=== PATIENT | female | born 1955 | race Caucasian/White ===

== ENCOUNTER 2016-12-31 09:49 | Emergency (ER) | payer BC ==
[~2016-12-31] VITALS: Ht 165.1 cm; Wt 89.5 kg
[2016-12-31 09:53] VITALS: TEMP 98.8
[2016-12-31 10:47] LABS: HEMATOCRIT 37.3 % (37.0-47.0); MEAN CELL VOLUME 67 fl (80.0-100.0); MEAN CORPUSCULAR HEMOGLOBIN 19 pg (27.0-31.0); MEAN CORPUSCULAR HGB CONC 29 g/dl (33.0-37.0); PLATELET COUNT 368 K/mm3 (130-400); RED BLOOD COUNT 5.58 M/mm3 (4.10-5.30); REDCELL DISTRIBUTION WIDTH-CV 17.9 % (11.5-14.5); WHITE BLOOD COUNT 14.9 K/mm3 (4.8-10.8)
[2016-12-31 10:51] LABS: ADD PATHOLOGY DIFF REVIEW NO; HEMOGLOBIN 10.8 g/dl (12.5-16.0)
[2016-12-31 11:06] LABS: PROTHROMBIN TIME 11.6 SECONDS (9.7-12.8)
[2016-12-31 11:07] LABS: ALANINE AMINOTRANSFERASE 24 U/L (9-52); ALBUMIN 4.5 gm/dL (3.5-5.0); ALKALINE PHOSPHATASE 82 U/L (50-136); ANION GAP 11 mmol/L (7-16); BILIRUBIN,TOTAL 0.7 mg/dL (0.0-1.0); BLOOD UREA NITROGEN 14 mg/dL (7-17); CALCIUM 9.4 mg/dL (8.4-10.2); CARBON DIOXIDE 23 mmol/L (22-30); CHLORIDE 105 mmol/L (98-107); CREATININE, serum 0.86 mg/dL (0.52-1.25); GLUCOSE 114 mg/dL (74-106); POTASSIUM 3.7 mmol/L (3.4-5.0); SODIUM 138 mmol/L (137-145); TOTAL PROTEIN 7.8 gm/dL (6.4-8.2)
[2016-12-31 11:18] LABS: TROPONIN-I < 0.012 ng/mL (0.000-0.034)
[2016-12-31] MEDS ORDERED: NORVASC 5MG5 MG/TAB PO (11:45)
[2016-12-31] MEDS ORDERED: NORCO 325 MG-51 TAB PO (11:45)
[2016-12-31 12:03] VITALS: BP 156/91; PULSE 58
[2016-12-31 12:07] LABS: EOSINOPHIL 1 % (0-4); NEUTROPHILS 94 % (42.0-75.2); PLATELET ESTIMATE NORMAL (NORMAL); TOTAL CELLS COUNTED 100
[2016-12-31 12:08] LABS: HYPOCHROMIA 2+; MICROCYTOSIS 1+
== END 2016-12-31 12:05 | disposition home or self-care (01) ==
LOC: COL.ER 09:49
PROVIDERS: Emergency Medicine
DX: S42.211A Unspecified displaced fracture of surgical neck of right humerus, initial encounter for closed fracture (principal); W01.10XA Fall on same level from slipping, tripping and stumbling with subsequent striking against unspecified object, initial encounter; Y92.009 Unspecified place in unspecified non-institutional (private) residence as the place of occurrence of the external cause; I10 Essential (primary) hypertension; T46.5X6A Underdosing of other antihypertensive drugs, initial encounter; Z91.128 Patient's intentional underdosing of medication regimen for other reason
CPT/HCPCS: J2765; J3010; J7030

== ENCOUNTER → 2017-01-03 | Outpatient (CLI) | payer BC ==
[~2017-01-03] MED LIST: NORCO 325 MG-51 TAB PO; NORVASC 5MG5 MG/TAB PO
== END ==
LOC: COL.RAD 10:19
DX: S42.211A Unspecified displaced fracture of surgical neck of right humerus, initial encounter for closed fracture (principal); M19.011 Primary osteoarthritis, right shoulder; M77.8 Other enthesopathies, not elsewhere classified